=== PATIENT | female | born 1990 | race Caucasian/White ===

== ENCOUNTER 2025-01-19 18:34 | Inpatient (IN) | payer OTHER, SELFPAY ==
[2025-01-19 18:41] VITALS: BP 140/84; PULSE 90; O2SAT 99
[2025-01-19 18:48] VITALS: BP 152/76; PULSE 93; RESP 18; TEMP 37; O2SAT 98; BMI 37.8
[2025-01-19 19:29] LABS: MANUAL DIFF FLAG NO
[2025-01-19 19:34] LABS: Basophils Absolute Auto 0.1 X10*3/uL (0.0-0.2); Basophils Percent Auto 1.1 % (0-2); Eosinophils Absolute Auto 0.2 X10*3/uL (0.0-0.4); Hematocrit 36.9 % (37.0-47.0); Hemoglobin 12.4 g/dl (12.0-16.0); Imm Gran Abs Auto 0.03 X10*3/uL (0.00-0.03); Imm Gran Pct Auto 0.4 % (0.0-0.4); Lymphocytes Absolute Auto 2.3 X10*3/uL (1.2-4.9); Lymphocytes Percent Auto 30.1 % (20-40); Mean Corpuscular HGB Conc 33.6 g/dl (31.0-35.0); Mean Corpuscular Hemoglobin 29.9 pg (27.0-33.0); Mean Corpuscular Volume 88.9 fL (80.0-98.0); Monocytes Absolute Auto 0.6 X10*3/uL (0.1-1.2); Monocytes Percent Auto 7.7 % (2-11); Neutrophils Absolute Auto 4.4 x10*3/uL (2.0-8.3); Neutrophils Percent Auto 57.7 % (45-73); Platelet Count 387 X10*3/uL (160-400); Red Blood Count 4.15 X10*6/uL (4.20-5.50); Red Cell Distribution Width 13.5 % (11.0-16.0); White Blood Count 7.6 X10*3/uL (4.8-10.8)
[2025-01-19 19:42] LABS: Amphetamine Screen Urine POSITIVE (Not Detect); Barbiturates, Urine Not Detected (Not Detect); Benzodiazepines Screen Urine Not Detected (Not Detect); Buprenorphine Scr Not Detected (Not Detect); Cannabinoid Screen Urine Not Detected (Not Detect); Cocaine Screen Urine Not Detected (Not Detect); Fentanyl, urine Not Detected (Not Detect); Methadone Screen, Urine Not Detected (Not Detect); Opiate Screen Urine Not Detected (Not Detect); Oxycodone Screen Urine Not Detected (Not Detect); Phencyclidine Screen Urine Not Detected (Not Detect)
[2025-01-19 20:07] LABS: Ethanol < 10 mg/dL; HCG Quantitative < 2 mIU/mL; Influenza A PCR NEGATIVE (Negative); Influenza B PCR NEGATIVE (Negative); Resp Syncy Virus RNA Qual PCR NEGATIVE (Negative); SARS COV2 PCR INHOUSE NEGATIVE (Negative)
[2025-01-19 20:24] LABS: Alanine Aminotransferase 13 U/L (0-31); Albumin Level 4.1 g/dL (3.5-5.0); Alkaline Phosphatase 62 U/L (39-117); Aspartate Amino Transferase 16 U/L (5-31); Bilirubin Total 0.1 mg/dL (0.0-1.0); Blood Urea Nitrogen 17 mg/dL (9-16); Calcium 8.8 mg/dL (8.4-10.2); Creatinine Clr Calc Pharmacy 140.5; Estimated Glomerular Filt Rate > 60; Glucose Random 89 mg/dL (60-115); Magnesium 2.1 mg/dL (1.6-2.6); Total Protein 7.1 g/dL (6.5-8.0)
[2025-01-19 20:28] VITALS: BP 139/84; PULSE 91; RESP 18; TEMP 36.6; O2SAT 98
[2025-01-19 20:36] LABS: Anion Gap 14 (12-20); Carbon Dioxide 23 mmol/L (22-29); Chloride 108 mmol/L (96-108); Potassium 4.3 mmol/L (3.3-5.1); Sodium 141 mmol/L (135-145)
--- NOTE | 2025-01-19 21:17 | ED_ITS ---
HPI - General Adult General Chief complaint: Psychiatric Symptoms Stated complaint: ?pysch eval/med adjustment Time Seen by Provider: 01/19/25 18:45 Source: patient Limitations: no limitations History of Present Illness ED Provider: Alejandra Birch PA-C HPI narrative: 34-year-old female presents with depression. Patient states she is currently at [facility], she sees a psychiatrist. She is feeling increased depression with a progressive lack of motivation. She feels as if she is not getting the help she requires. She is requesting assessment by the care team and potential adjustment of her medications. She denies SI, or HI. She has been sober for 5 months from illicit substances and alcohol. Related Data Home Medications ?Medication ?Instructions ?Recorded ?Confirmed acetaminophen 325 mg tablet 650 mg PO Q4H PRN Fever Or Pain 01/20/25 01/20/25 albuterol sulfate 90 mcg/actuation 2 puff inhalation Q4-6H PRN SOB 01/20/25 01/20/25 aerosol inhaler (Ventolin HFA) clobetasol 0.05 % topical cream 1 appl topical BID 01/20/25 01/20/25 doxazosin 4 mg tablet 6 mg PO BEDTIME 01/20/25 01/20/25 ibuprofen 600 mg tablet 600 mg PO Q8H PRN Pain 01/20/25 01/20/25 lisdexamfetamine 60 mg capsule 60 mg PO DAILY 01/20/25 01/20/25 (Vyvanse) mirtazapine 15 mg tablet (Remeron) 7.5 mg PO BEDTIME 01/20/25 01/20/25 nicotine (polacrilex) 4 mg gum 4 mg buccal Q1H PRN Smoking 01/20/25 01/20/25 Cessation omeprazole 20 mg capsule,delayed 20 mg PO DAILY@0630 01/20/25 01/20/25 release paroxetine HCl 20 mg tablet (Paxil) 20 mg PO DAILY 01/20/25 01/20/25 quetiapine 100 mg tablet (Seroquel) 100 mg PO TID 01/20/25 01/20/25 quetiapine 300 mg tablet (Seroquel) 300 mg BEDTIME 01/20/25 01/20/25 trazodone 100 mg tablet 50 - 100 mg PO BEDTIME PRN Sleep 01/20/25 01/20/25 Allergies Allergy/AdvReac Type Severity Reaction Status Date / Time aripiprazole [From Abilify] Allergy Unknown Verified 01/19/25 18:50 lamotrigine [From Lamictal] Allergy Unknown Verified 01/19/25 18:50 Review of Systems 2 Review of Systems: Yes all other systems are reviewed and are negative Constitutional: Constitutional: Denies fatigue and Denies fever(s) Cardiovascular: Cardiovascular: Denies chest pain and Denies dyspnea Respiratory: Respiratory: Denies cough and Denies dyspnea Gastrointestinal: Gastrointestinal: Denies abdominal pain, Denies diarrhea, Denies nausea and Denies vomiting Endocrine: Endocrine: Denies fatigue [facility] Past Medical History Attestation statement: The following information was validated with the patient. Social History Social History Smoked in Last 30 Days: No Use of substances other than those prescribed or required for medical reasons: No Advance Directives: No Advance Directives Information Provided: No Patient : No Physical Exam ED Vital Signs: Vital Signs - 24 hr 01/20/25 15:53 01/20/25 20:43 01/21/25 05:33 Temperature 98.7 F 98.2 F Pulse Rate 88 89 Respiratory Rate 18 18 Blood Pressure 106/50 L 106/50 L 106/70 Pulse Oximetry 99 98 Oxygen Delivery Method Room Air Room Air BMI result Body Mass Index 37.8 Const Other: Alert Orientation/consciousness: patient oriented x3 Resp Effort & Inspection: normal respiratory effort Cardio Other: Normal peripheral perfusion Skin Other: Warm dry no rash Neuro General: patient oriented x3, gait normal, no focal motor deficits and CN's II- XI intact bilaterally Psych Other: Cooperative Course Reevaluation(s) Reevaluation #1: Time: 05:06 Date: 01/20/25 Provider: JOSE Walker Patient in physician observation for psychiatric evaluation.? No acute events reported overnight. No current complaints. VS stable.? Patient is in bed search status/pending CARE team evaluation. Will continue to monitor. Reevaluation #2: Time: 07:43 Date: 01/21/25 Provider: Gio Angeles MD Patient in physician observation for psychiatric evaluation.? No acute events reported overnight. No current complaints. VS stable.? Patient is in bed search status/pending CARE team evaluation. Will continue to monitor. Time: 07:43 Reevaluation #3: Patient will be admitted to psychiatric unit Dr. Manuela childers. This ended the observation in the emergency room Time: 11:51 Medications Administered Generic Name Dose Route Start Last Admin Trade Name Eddie PRN Reason Stop Dose Admin Amphetamine/Dextroamphetamine 25 mg 01/21/25 10:30 01/21/25 10:30 20 mg/ Amphetamine/ PO 25 mg Dextroamphetamine 5 mg DAILY ROYA Administration Betamethasone Dipropion Augmented 1 appl 01/20/25 09:00 01/21/25 09:53 Betamethasone Dip Aug 0.05% Cr 15 Gm Tube TOPICAL Not Given BID ROYA Doxazosin Mesylate 6 mg 01/20/25 21:00 01/20/25 20:43 Doxazosin Mesylate 2 Mg Tablet PO 6 mg BEDTIME ROYA Administration Protocol Famotidine 20 mg 01/20/25 09:00 01/21/25 09:50 Famotidine 20 Mg Tablet PO 20 mg DAILY ROYA Administration Lorazepam 1 mg 01/20/25 16:26 01/21/25 10:22 Lorazepam 1 Mg Tablet PO 1 mg QID PRN Administration Anxiety, agitation Mirtazapine 7.5 mg 01/20/25 21:00 01/20/25 20:44 Mirtazapine 7.5 Mg Tablet PO 7.5 mg BEDTIME ROYA Administration Paroxetine HCl 20 mg 01/20/25 09:00 01/21/25 09:50 Paroxetine Hcl 20 Mg Tablet PO 20 mg DAILY ROYA Administration Quetiapine Fumarate 100 mg 01/20/25 09:00 01/21/25 09:50 Quetiapine Fumarate 100 Mg Tablet PO 100 mg TID ROYA Administration Quetiapine Fumarate 300 mg 01/20/25 21:00 01/20/25 20:44 Quetiapine Fumarate 300 Mg Tablet PO 300 mg BEDTIME ROYA Administration Discontinued Medications Generic Name Dose Route Start Last Admin Trade Name Eddie PRN Reason Stop Dose Admin Acetaminophen 975 mg 01/20/25 02:07 01/20/25 02:10 Acetaminophen 325 Mg Tablet PO 01/20/25 02:08 975 mg ONCE ONE Administration Ibuprofen 600 mg 01/20/25 02:07 01/20/25 02:10 Ibuprofen 600 Mg Tablet PO 01/20/25 02:08 600 mg ONCE ONE Administration Lorazepam 1 mg 01/20/25 16:28 01/20/25 16:44 Lorazepam 1 Mg Tablet PO 01/20/25 16:29 1 mg ONCE ONE Administration Medical Decision Making Medical Decision Making MDM Narrative: 34-year-old female presents with depression. Patient states she is currently at [facility], she sees a psychiatrist. She is feeling increased depression with a progressive lack of motivation. She feels as if she is not getting the help she requires. She is requesting assessment by the care team and potential adjustment of her medications. She denies SI, or HI. She has been sober for 5 months from illicit substances and alcohol. Problem: Psychiatric illness , substance abuse History: Per patient I have considered the following differential diagnoses: SI, HI, decompensated psychiatric illness, drug/alcohol intoxication Plan: Screening labs including serum ethanol and U tox we will be obtained. I did speak with the care team, the patient was actively asking for help, we are going to make her inpatient, there should be a bed in the morning. I have independently reviewed the following tests: Labs: No leukocytosis, not anemic, no electrolyte abnormality, U tox negative besides amphetamine which she is prescribed, alcohol negative Lab Data 01/19/25 19:23 01/19/25 19:23 Labs: Lab Results 01/19/25 Range/Units 19:23 WBC 7.6 (4.8-10.8) X10*3/uL RBC 4.15 L (4.20-5.50) X10*6/uL Hgb 12.4 (12.0-16.0) g/dl Hct 36.9 L (37.0-47.0) % MCV 88.9 (80.0-98.0) fL MCH 29.9 (27.0-33.0) pg MCHC 33.6 (31.0-35.0) g/dl RDW 13.5 (11.0-16.0) % Plt Count 387 (160-400) X10*3/uL MPV 10.0 (9.4-12.3) fL Immature Gran % (Auto) 0.4 (0.0-0.4) % Neut % (Auto) 57.7 (45-73) % Lymph % (Auto) 30.1 (20-40) % Traverse % (Auto) 7.7 (2-11) % Eos % (Auto) 3.0 (0-4) % Baso % (Auto) 1.1 (0-2) % Lymph # (Auto) 2.3 (1.2-4.9) X10*3/uL Traverse # (Auto) 0.6 (0.1-1.2) X10*3/uL Eos # (Auto) 0.2 (0.0-0.4) X10*3/uL Baso # (Auto) 0.1 (0.0-0.2) X10*3/uL Abs Immat Gran (auto) 0.03 (0.00-0.03) X10*3/uL Absolute Neuts (auto) 4.4 (2.0-8.3) x10*3/uL Absolute Nucleated RBC 0.000 (0.0-0.012) X10*3/uL Nucleated RBC % (auto) 0.0 (0.0-0.2) /100WBC Sodium 141 (135-145) mmol/L Potassium 4.3 (3.3-5.1) mmol/L Chloride 108 (96-108) mmol/L Carbon Dioxide 23 (22-29) mmol/L Anion Gap 14 (12-20) BUN 17 H (9-16) mg/dL Creatinine 0.66 (0.5-1.4) mg/dL Estim Creat Clear Calc 140.5 Estimated GFR > 60 Random Glucose 89 (60-115) mg/dL Calcium 8.8 (8.4-10.2) mg/dL Magnesium 2.1 (1.6-2.6) mg/dL Total Bilirubin 0.1 (0.0-1.0) mg/dL AST 16 (5-31) U/L ALT 13 (0-31) U/L Alkaline Phosphatase 62 (39-117) U/L Total Protein 7.1 (6.5-8.0) g/dL Albumin 4.1 (3.5-5.0) g/dL Beta HCG, Quant < 2 mIU/mL Urine Opiates Screen Not Detected (Not Detect) Ur Buprenorphine Scrn Not Detected (Not Detect) ng/mL Ur Oxycodone Screen Not Detected (Not Detect) ng/mL Urine Methadone Screen Not Detected (Not Detect) ng/mL Urine Fentanyl Screen Not Detected (Not Detect) Ur Barbiturates Screen Not Detected (Not Detect) Ur Phencyclidine Scrn Not Detected (Not Detect) Ur Amphetamines Screen POSITIVE H (Not Detect) U Benzodiazepines Scrn Not Detected (Not Detect) Urine Cocaine Screen Not Detected (Not Detect) U Marijuana (THC) Screen Not Detected (Not Detect) Ethyl Alcohol < 10 mg/dL Influenza Type A (PCR) NEGATIVE (Negative) Influenza Type B (PCR) NEGATIVE (Negative) RSV RNA Qual (PCR) NEGATIVE (Negative) SARS-CoV-2 RNA (RT-PCR) NEGATIVE (Negative) Discharge Plan Discharge Clinical Impression: Depression Patient Disposition: Admitted As Inpatient Interventions: [place]-Suicide Risk Severity Scale Last Done: 01/21/25 05:24
[2025-01-19 22:54] VITALS: BP 129/73; PULSE 97; RESP 18; TEMP 36.6; O2SAT 97
--- NOTE | 2025-01-19 23:12 | PC.NURSE ---
CARE team at beside speaking with patient
--- NOTE | 2025-01-20 | ECG_ITS ---
Test Reason : PSYCH ADMISSION Blood Pressure : */* mmHG Vent. Rate : 82 BPM Atrial Rate : 82 BPM P-R Int : 138 ms QRS Dur : 94 ms QT Int : 386 ms P-R-T Axes : -5 60 41 degrees QTcB Int : 450 ms Normal sinus rhythm Normal ECG No previous ECGs available Referred By: Maryanne Sullivan Electronically Signed By: VILMA QUAN MD
[2025-01-20] MEDS: Acetaminophen 325 MG TABLET 975 MG PO (02:10)
[2025-01-20] MEDS: Ibuprofen 600 MG TABLET PO (02:10)
[2025-01-20 02:46] VITALS: RESP 20
[2025-01-20 06:55] VITALS: BP 112/65; PULSE 86; RESP 17; TEMP 36.7; O2SAT 97
[2025-01-20] MEDS: Betamethasone Dip Aug 0.05% Cr 15 GM TUBE 1 APPL TOPICAL (10:24)
[2025-01-20] MEDS: QUEtiapine Fumarate 100 MG TABLET PO ×3 (10:24→20:47)
[2025-01-20] MEDS: Famotidine 20 MG TABLET PO (10:24)
--- NOTE | 2025-01-20 10:29 | PC.NURSE ---
Patient topical medication placed in chart for possible BH admission
[2025-01-20] MEDS: PARoxetine HCL 20 MG TABLET PO (10:41)
--- NOTE | 2025-01-20 13:33 | PC.NURSE ---
Report received from NABIL Quintero, taken over care at this time.
--- NOTE | 2025-01-20 14:29 | PC.NURSE ---
Spoke to brand leader of [facility] and spoke to aCroline, updated her on pt's status and plan of care.
[2025-01-20 15:53] VITALS: BP 106/50; PULSE 88; RESP 18; TEMP 37.1; O2SAT 99
--- NOTE | 2025-01-20 16:38 | PHA.MEDREC ---
Addendum entered by Willem Wright 01/20/25 16:42: reviewed Original Note: Pharmacy Consult ? Medication Reconciliation Pharmacy has reviewed the medication reconciliation done by nursing. Utilized list from [facility] to confirm med list. Added Ibuprofen 600 mg, Nicotine gum , and Acetominophen 352 that was left off med list.
[2025-01-20] MEDS: LORazepam 1 MG TABLET PO (16:44)
[2025-01-20 20:43] VITALS: BP 106/50
[2025-01-20] MEDS: Doxazosin Mesylate 2 MG TABLET 6 MG PO (20:43)
[2025-01-20] MEDS: QUEtiapine Fumarate 300 MG TABLET PO (20:44)
[2025-01-20] MEDS: Mirtazapine 7.5 MG TABLET PO (20:44)
--- NOTE | 2025-01-20 23:29 | PC.NURSE ---
Took over from NABIL Rosario, pt given a snack, but in room.
--- NOTE | 2025-01-21 00:51 | PC.NURSE ---
pt given a mikayla naif
--- NOTE | 2025-01-21 05:25 | PC.NURSE ---
pt out of bed siting in chair, vitals taken. pt given MHC difficult time during bp. Pt had to be redirected.
[2025-01-21 05:33] VITALS: BP 106/70; PULSE 89; RESP 18; TEMP 36.8; O2SAT 98
--- NOTE | 2025-01-21 09:25 | PC.NURSE ---
assumed care of pt at 0645. pt resting quietly. ate breakfast. advocating for her needs. continue with plan of care for inpatient bed search.
[2025-01-21] MEDS: QUEtiapine Fumarate 100 MG TABLET PO ×3 (09:50→20:03)
[2025-01-21] MEDS: Famotidine 20 MG TABLET PO (09:50)
[2025-01-21] MEDS: PARoxetine HCL 20 MG TABLET PO ×2 (09:50→13:51)
[2025-01-21] MEDS: LORazepam 1 MG TABLET PO ×2 (10:22→19:31)
[2025-01-21] MEDS: [UNRECOGNIZED DRUG - OTHER] PO (10:30)
[2025-01-21] MEDS: DEXTROAMPHETAMINE PO (10:30)
[2025-01-21] MEDS: AMPHETAMINE PO (10:30)
--- NOTE | 2025-01-21 12:24 | HO.PSYADMNOT ---
HPI Date of Service: 01/21/25 Chief Complaint: SI Sources of Information: patient interviewed, chart reviewed and crisis/core team assessment reviewed HPI Subjective Notes: Gilbert Warning and Conditional Voluntary Narrative: Ms. Amin is a 34 year-old woman with hx of depression, methamphetamine use disorder on remission, alcohol use disorder in remission who self presented from [facility] in [place], due to increase depression, passive suicidal ideation. Her utox was positive for amphetamines, she is currently prescribed vyvanse. Other substances were negative. On the unit, pt presents as tearful and somewhat restless. She reports she has been sober for 5 months. She reports this is the longest period of sobriety she has had since she started using substances, mainly methamphetamines and alcohol at the age of 17. She reports she feels hopeless, helpless, depressed, anhedonia. She also reports feeling very anxious, which she describes as contact need to pace, during the day at times during the night. She reports she has been feeling this way for the past 3 months or so. She is tearful during interview stating she thought that by stopping illicit substances she would feel much better but it has not been the case. She reports currently at [facility] program she has not had the chance to see a psychiatric provider and she has been on same combination of medication she was started 5 months ago. She is currently on vyvvanse. She is also on seroquel 100mg po TID and additional 400mg po qhs. She reports sleep is fair. She denies hx of visual or auditory hallucinations. Past Psychiatric History: Inpt: pt reports multiple inpt admission mostly in [facility]. OP: none currently Past medication trials: paxil, seroquel, doxasozin for nightmares, trazodone, gabapentin Medical Evaluation Reviewed: Yes Diagnostics Vital Signs (24Hr): Vital Signs - 24 hr 01/20/25 15:53 01/20/25 20:43 01/21/25 05:33 Temperature 98.7 F 98.2 F Pulse Rate 88 89 Respiratory Rate 18 18 Blood Pressure 106/50 L 106/50 L 106/70 Pulse Oximetry 99 98 Oxygen Delivery Method Room Air Room Air BMI result Body Mass Index 37.8 Labs 01/19/25 19:23 01/21/25 15:17 Labs: Laboratory Results - last 48 hr 01/19/25 19:23 WBC 7.6 RBC 4.15 L Hgb 12.4 Hct 36.9 L MCV 88.9 MCH 29.9 MCHC 33.6 RDW 13.5 Plt Count 387 MPV 10.0 Immature Gran % (Auto) 0.4 Neut % (Auto) 57.7 Lymph % (Auto) 30.1 Castro % (Auto) 7.7 Eos % (Auto) 3.0 Baso % (Auto) 1.1 Lymph # (Auto) 2.3 Castro # (Auto) 0.6 Eos # (Auto) 0.2 Baso # (Auto) 0.1 Abs Immat Gran (auto) 0.03 Absolute Neuts (auto) 4.4 Absolute Nucleated RBC 0.000 Nucleated RBC % (auto) 0.0 Sodium 141 Potassium 4.3 Chloride 108 Carbon Dioxide 23 Anion Gap 14 BUN 17 H Creatinine 0.66 Estim Creat Clear Calc 140.5 Estimated GFR > 60 Random Glucose 89 Calcium 8.8 Magnesium 2.1 Total Bilirubin 0.1 AST 16 ALT 13 Alkaline Phosphatase 62 Total Protein 7.1 Albumin 4.1 Beta HCG, Quant < 2 Urine Opiates Screen Not Detected Ur Buprenorphine Scrn Not Detected Ur Oxycodone Screen Not Detected Urine Methadone Screen Not Detected Urine Fentanyl Screen Not Detected Ur Barbiturates Screen Not Detected Ur Phencyclidine Scrn Not Detected Ur Amphetamines Screen POSITIVE H U Benzodiazepines Scrn Not Detected Urine Cocaine Screen Not Detected U Marijuana (THC) Screen Not Detected Ethyl Alcohol < 10 Influenza Type A (PCR) NEGATIVE Influenza Type B (PCR) NEGATIVE RSV RNA Qual (PCR) NEGATIVE SARS-CoV-2 RNA (RT-PCR) NEGATIVE Meds/Allergies Meds Home Medications ?Medication ?Instructions ?Recorded ?Confirmed ?Type acetaminophen 325 mg tablet 650 mg PO Q4H PRN Fever Or Pain 01/20/25 01/20/25 History albuterol sulfate 90 mcg/actuation 2 puff inhalation Q4-6H PRN SOB 01/20/25 01/20/25 History aerosol inhaler (Ventolin HFA) clobetasol 0.05 % topical cream 1 appl topical BID 01/20/25 01/20/25 History doxazosin 4 mg tablet 6 mg PO BEDTIME 01/20/25 01/20/25 History ibuprofen 600 mg tablet 600 mg PO Q8H PRN Pain 01/20/25 01/20/25 History lisdexamfetamine 60 mg capsule 60 mg PO DAILY 01/20/25 01/20/25 History (Vyvanse) mirtazapine 15 mg tablet (Remeron) 7.5 mg PO BEDTIME 01/20/25 01/20/25 History nicotine (polacrilex) 4 mg gum 4 mg buccal Q1H PRN Smoking 01/20/25 01/20/25 History Cessation omeprazole 20 mg capsule,delayed 20 mg PO DAILY@0630 01/20/25 01/20/25 History release paroxetine HCl 20 mg tablet (Paxil) 20 mg PO DAILY 01/20/25 01/20/25 History quetiapine 100 mg tablet (Seroquel) 100 mg PO TID 01/20/25 01/20/25 History quetiapine 300 mg tablet (Seroquel) 300 mg BEDTIME 01/20/25 01/20/25 History trazodone 100 mg tablet 50 - 100 mg PO BEDTIME PRN Sleep 01/20/25 01/20/25 History Allergies Allergies Allergy/AdvReac Type Severity Reaction Status Date / Time aripiprazole [From Abilify] Allergy Unknown Verified 01/19/25 18:50 lamotrigine [From Lamictal] Allergy Unknown Verified 01/19/25 18:50 Mental Status Exam Mental Status Exam Narrative: Appearance: wearing hospital gown, fair hygiene, in NAD Behavior: somewhat guarded, but mostly cooperative Psychomotor: tapping feet, no tremors Speech: clear, normal rate/rhythm/volume, spontaneous TP: linear TC: wanting to feel better Mood: not well Affect: anxious and slightly irritable SI: denies HI: none VH/AH: none Delusions: none Insight/judgment: fair x 2. Memory/cog: alert, oriented x 3. grossly intact to conversational testing. Assessment & Plan Assessment & Plan (1) MDD (major depressive disorder), recurrent episode, moderate: Status: Acute Code(s): F33.1 - Major depressive disorder, recurrent, moderate (2) Methamphetamine use disorder, mild, in early remission, abuse: Status: Acute Code(s): F15.11 - Other stimulant abuse, in remission (3) Alcohol use disorder, mild, in early remission, abuse: Status: Acute Code(s): F10.11 - Alcohol abuse, in remission Plan Ms. Amin is a 34 year-old woman with hx of methamphetamine use disorder and alcohol use disorder in remission. She came from [facility] in [place]. Pt endorses symptoms of depression, including anhedonia, passive SI. She also presents with s/s suggestive of akathisia including subjective feeling of constant anxiety and constant need to move or tap feet. We discussed fact that seroquel can exacerbate akathisia, prior misuse of stimulants including methamphetamines can increase risk for akathisia. We discussed gradually lowering dose of seroquel, starting propanolol 5mg po TID and adjusting dose gradually as tolerated. She had prn dose of ativan but as akathisia is properly treated, ativan dose can be tapered off. PLAN 1. Admit to M3, CV, 15 minutes checks for safety. 2. d/c seroquel 100mg po TID, will continue night time dose of seroquel 400mg po qhs. 3. Start propanolol 5mg po TID. 4. Increase paxil from 20mg po daily to 40mg po daily 5. Aftercare planning. Patient educated on: diagnosis, medication risk/benefits and substance abuse Reason for continued inpatient stay Substantial Risk for: harm to self Statement Statement: I have reviewed the history and physical and performed a pertinent examination on my patient. No changes have occurred unless specified. If the History and Physical was not performed prior to admission, the Hospitalist's service will be consulted for completing the admission physical. Time Spent With Patient Time: Total time managing care of this patient today ____ minutes.
[2025-01-21 13:47] VITALS: BP 138/71; PULSE 88; RESP 18; TEMP 36.9; O2SAT 98
[2025-01-21 15:04] VITALS: BMI 42.9
--- NOTE | 2025-01-21 15:06 | PC.ADMIT ---
Mami is a 34-year-old female admitted from [facility] to M3 on a CV for treatment of unspecified bipolar and unspecified depressive d/o. Tox screen positive for amphetamines however pt is prescribed Adderall. Medical hx: psoriasis, pt has red scaly patches on bilateral shins. Pt reports hx of using meth and alcohol and has hx of being restrained while in withdrawal. Pt reports being sober from drugs and alcohol for 5 months. Pt has a hx of attempting suicide via fentanyl overdose when I was a lot younger. Pt has been at [facility] for 1 month. Pt presented to ED after experiencing an increase in depressive symptoms, anhedonia and loss of motivation secondary to having difficulty establishing psychiatric providers. Pt reports feeling overwhelmed due to not having providers to help her with medication changes and not having anyone to talk about how my medications have affected me. Upon admission to M3, pt was alert and oriented x4, pleasant and cooperative. Mood was depressed with congruent affect, pt was crying at times during assessment. Thought process linear and organized. Pt currently denies SI/HI/AH/VH but will reach out to staff if thoughts occur. Pt reports poor sleep due to waking up abruptly from night terrors. Pt is able to return to [facility] but she would like to go to a [facility] in [place] instead. Pt placed on 15 minute safety checks.
[2025-01-21 16:11] LABS: Alanine Aminotransferase 13 U/L (0-31); Albumin Level 3.9 g/dL (3.5-5.0); Alkaline Phosphatase 59 U/L (39-117); Anion Gap 14 (12-20); Aspartate Amino Transferase 17 U/L (5-31); Bilirubin Total 0.1 mg/dL (0.0-1.0); Blood Urea Nitrogen 15 mg/dL (9-16); Calcium 8.7 mg/dL (8.4-10.2); Carbon Dioxide 20 mmol/L (22-29); Chloride 107 mmol/L (96-108); Creatinine Clr Calc Pharmacy 148.8; Estimated Glomerular Filt Rate > 60; Glucose Random 116 mg/dL (60-115); Potassium 4.1 mmol/L (3.3-5.1); Sodium 137 mmol/L (135-145); Total Protein 6.8 g/dL (6.5-8.0)
--- NOTE | 2025-01-21 18:23 | PC.NURSE ---
Addendum entered by Carmella Alonso RN 01/21/25 18:26: Pt reported 8/10 LUQ pain Original Note: Pt reported new onset LUQ pain worsened when she inhales. BP 136/82 HR 91. Offered heating pad and Mylanta, pt refused. Provider aware.
[2025-01-21] MEDS: Nicotine Polacrilex 2 MG GUM BUCCAL (18:25)
[2025-01-21 20:00] VITALS: BP 119/78; PULSE 96; RESP 18; TEMP 36.4; O2SAT 97
[2025-01-21] MEDS: QUEtiapine Fumarate 300 MG TABLET PO (20:03)
[2025-01-21] MEDS: Mirtazapine 7.5 MG TABLET PO (20:03)
[2025-01-21 20:06] VITALS: BP 119/78
[2025-01-21] MEDS: Doxazosin Mesylate 2 MG TABLET 6 MG PO (20:06)
[2025-01-21] MEDS: Doxazosin Mesylate 1 MG TABLET PO (20:06)
[2025-01-21] MEDS: traZODone HCL 100 MG TABLET PO (22:59)
[2025-01-21] MEDS: traZODone HCL 50 MG TABLET PO (22:59)
[2025-01-21] MEDS: hydrOXYzine HCL 25 MG TABLET PO (22:59)
[2025-01-22] VITALS (7 sets, daily range): BP systolic 114–119; BP diastolic 65–70; PULSE 83–94; RESP 16–18; TEMP 36.9; O2SAT 98–99
[2025-01-22] MEDS: QUEtiapine Fumarate 100 MG TABLET PO ×2 (09:18→16:05)
[2025-01-22] MEDS: Famotidine 20 MG TABLET PO (09:18)
[2025-01-22] MEDS: PARoxetine HCL 40 MG TABLET PO (09:18)
[2025-01-22 10:14] LABS: Cholesterol 193 mg/dL (<200); HDL Cholesterol 46 mg/dL (>40); LDL Cholesterol Calculated 96 mg/dL (<100); Triglycerides 257 mg/dL (<150)
[2025-01-22 10:28] LABS: Thyroid Stimulating Hormone 2.63 uIU/mL (0.32-4.0)
[2025-01-22 10:43] LABS: Folate 12.2 ng/mL (> or = 4.0); Vitamin B12 668 pg/mL (200-900)
[2025-01-22 10:56] LABS: Estimated Average Glucose 103 mg/dL; Hemoglobin A1C 112.9694 umol/L; Hemoglobin A1c % 5.2 % (<6.0); Total Hemoglobin (HGBA1C) 3426.6241 umol/L
[2025-01-22] MEDS: LORazepam 1 MG TABLET PO ×2 (13:12→22:22)
[2025-01-22] MEDS: Propranolol HCL 10 MG TABLET 5 MG PO ×2 (16:05→20:17)
[2025-01-22] MEDS: Nicotine Polacrilex 2 MG GUM BUCCAL (16:28)
[2025-01-22] MEDS: Acetaminophen 325 MG TABLET 650 MG PO (17:50)
[2025-01-22] MEDS: hydrOXYzine HCL 25 MG TABLET PO ×2 (17:50→22:22)
[2025-01-22] MEDS: QUEtiapine Fumarate 300 MG TABLET PO (20:17)
[2025-01-22] MEDS: Doxazosin Mesylate 2 MG TABLET 6 MG PO (20:18)
[2025-01-22] MEDS: Doxazosin Mesylate 1 MG TABLET PO (20:20)
[2025-01-22] MEDS: traZODone HCL 50 MG TABLET PO ×2 (20:25→22:22)
[2025-01-22] MEDS: Mirtazapine 7.5 MG TABLET PO (20:25)
--- NOTE | 2025-01-22 22:29 | P.PNPSI_ITS ---
Subjective Subjective Date of Service: 01/22/25 Reason For Visit: SI Subjective Notes: Conditional Voluntary Interim History: Pt continues to report depressed mood but denies SI. She continues to report symptoms of restlessness, and tapping feet, which suspect are secondary to akathisia. She is tolerating propanolol. She had some difficulty sleeping last night. Discussed attempting to lower seroquel further at night, schedule trazodone. she has been visible on the unit, keeps to herself. Medication Compliance: Yes Review of Systems Review of Systems Yes all other systems are reviewed and are negative Constitutional: Denies fatigue and Denies fever(s) Cardiovascular: Denies chest pain and Denies dyspnea Respiratory: Denies cough and Denies dyspnea Gastrointestinal: Denies abdominal pain, Denies diarrhea, Denies nausea and Denies vomiting Endocrine: Denies fatigue Mental Status Exam Mental Status Exam Narrative: Appearance: wearing hospital gown, fair hygiene, in NAD Behavior: somewhat guarded, but mostly cooperative Psychomotor: tapping feet, no tremors Speech: clear, normal rate/rhythm/volume, spontaneous TP: linear TC: wanting to feel better Mood: not well Affect: anxious and slightly irritable SI: denies HI: none VH/AH: none Delusions: none Insight/judgment: fair x 2. Memory/cog: alert, oriented x 3. grossly intact to conversational testing. Diagnostics Vital Signs (24Hr): Vital Signs - 24 hr 01/22/25 07:05 01/22/25 16:01 01/22/25 16:05 Temperature 98.4 F Pulse Rate 94 86 86 Respiratory Rate 16 Blood Pressure 114/68 115/65 115/65 Pulse Oximetry 98 Oxygen Delivery Method Room Air 01/22/25 20:17 01/22/25 20:18 01/22/25 20:20 Temperature Pulse Rate 83 Respiratory Rate Blood Pressure 119/70 119/70 119/70 Pulse Oximetry Oxygen Delivery Method BMI result Body Mass Index 42.9 Labs 01/19/25 19:23 01/21/25 15:17 Labs: Laboratory Results - last 48 hr 01/21/25 01/22/25 15:17 09:33 Sodium 137 Potassium 4.1 Chloride 107 Carbon Dioxide 20 L Anion Gap 14 BUN 15 Creatinine 0.67 Estim Creat Clear Calc 148.8 Estimated GFR > 60 Random Glucose 116 H Estimat Average Glucose 103 Hemoglobin A1c % 5.2 Calcium 8.7 Total Bilirubin 0.1 AST 17 ALT 13 Alkaline Phosphatase 59 Total Protein 6.8 Albumin 3.9 Triglycerides 257 H Cholesterol 193 LDL Cholesterol, Calc 96 HDL Cholesterol 46 Vitamin B12 668 Folate 12.2 TSH 2.63 Medications Medications Current Medications Acetaminophen (Acetaminophen 325 Mg Tablet) 650 mg PO Q6H PRN PRN Reason: Headache/Pain, Scale 1-10 Last Admin: 01/22/25 17:50 Dose: 650 mg Al Hydroxide/Mg Hydroxide (Magnesium Hydrox/Alum Hydrox 30 Ml Oral.Susp) 30 ml PO Q6H PRN PRN Reason: Heartburn/Nausea Albuterol Sulfate (Albuterol Sulfate 90 Mcg 8 Gm Inhaler) 2 puff INHALE Q4H PRN PRN Reason: Shortness of Breath Betamethasone Dipropion Augmented (Betamethasone Dip Aug 0.05% Cr 15 Gm Tube) 1 appl TOPICAL BID [facility] Last Admin: 01/22/25 20:40 Dose: Not Given Doxazosin Mesylate (Doxazosin Mesylate 2 Mg Tablet) 6 mg PO BEDTIME [facility] Last Admin: 01/22/25 20:18 Dose: 6 mg Doxazosin Mesylate (Doxazosin Mesylate 1 Mg Tablet) 1 mg PO BEDTIME [facility] Last Admin: 01/22/25 20:20 Dose: 1 mg Famotidine (Famotidine 20 Mg Tablet) 20 mg PO DAILY [facility] Last Admin: 01/22/25 09:18 Dose: 20 mg Hydroxyzine HCl (Hydroxyzine Hcl 25 Mg Tablet) 25 mg PO Q6H PRN PRN Reason: mild anxiety Last Admin: 01/22/25 22:22 Dose: 25 mg Lorazepam (Lorazepam 1 Mg Tablet) 1 mg PO BID PRN PRN Reason: Anxiety, agitation Last Admin: 01/22/25 22:22 Dose: 1 mg Magnesium Hydroxide (Milk Of Magnesia 30 Ml Oral.Susp) 30 ml PO DAILY PRN PRN Reason: Constipation Mirtazapine (Mirtazapine 7.5 Mg Tablet) 7.5 mg PO BEDTIME [facility]YA Last Admin: 01/22/25 20:25 Dose: 7.5 mg Nicotine Polacrilex (Nicotine Polacrilex 2 Mg Gum) 2 mg BUCCAL Q2H PRN PRN Reason: Nicotine Cravings Last Admin: 01/22/25 16:28 Dose: 2 mg Paroxetine HCl (Paroxetine Hcl 40 Mg Tablet) 40 mg PO DAILY [facility] Last Admin: 01/22/25 09:18 Dose: 40 mg Propranolol HCl (Propranolol Hcl 10 Mg Tablet) 5 mg PO TID ROYA; Protocol Last Admin: 01/22/25 20:17 Dose: 5 mg Quetiapine Fumarate (Quetiapine Fumarate 300 Mg Tablet) 300 mg PO BEDTIME ROYA Last Admin: 01/22/25 20:17 Dose: 300 mg Quetiapine Fumarate (Quetiapine Fumarate 100 Mg Tablet) 100 mg PO TID PRN PRN Reason: anxiety Last Admin: 01/22/25 16:05 Dose: 100 mg Trazodone HCl (Trazodone Hcl 100 Mg Tablet) 100 mg PO BEDTIME PRN PRN Reason: Sleep Last Admin: 01/21/25 22:59 Dose: 100 mg Trazodone HCl (Trazodone Hcl 50 Mg Tablet) 50 mg PO BEDTIME MRX1 PRN PRN Reason: Insomnia Last Admin: 01/22/25 22:22 Dose: 50 mg Allergies Allergies Allergy/AdvReac Type Severity Reaction Status Date / Time aripiprazole [From Abilify] Allergy Unknown Verified 01/19/25 18:50 lamotrigine [From Lamictal] Allergy Unknown Verified 01/19/25 18:50 Assessment & Plan Assessment & Plan (1) MDD (major depressive disorder), recurrent episode, moderate: Status: Acute Code(s): F33.1 - Major depressive disorder, recurrent, moderate (2) Methamphetamine use disorder, mild, in early remission, abuse: Status: Acute Code(s): F15.11 - Other stimulant abuse, in remission (3) Alcohol use disorder, mild, in early remission, abuse: Status: Acute Code(s): F10.11 - Alcohol abuse, in remission Plan Ms. Amin is a 34 year-old woman with hx of methamphetamine use disorder and alcohol use disorder in remission. She came from [facility] in [place]. Pt endorses symptoms of depression, including anhedonia, passive SI. She also presents with s/s suggestive of akathisia including subjective feeling of constant anxiety and constant need to move or tap feet. We discussed fact that seroquel can exacerbate akathisia, prior misuse of stimulants including methamphetamines can increase risk for akathisia. We discussed gradually lowering dose of seroquel, starting propanolol 5mg po TID and adjusting dose gradually as tolerated. She had prn dose of ativan but as akathisia is properly treated, ativan dose can be tapered off. 01/22 continue propanolol for akathisia, titrate as tolerated, and continue taper of seroquel as even lower doses may still cause akathisia. Reason for continued inpatient stay Substantial Risk for: inability to function Time Spent With Patient Time: Total time managing care of this patient today ____ minutes.
[2025-01-23] MEDS: hydrOXYzine HCL 25 MG TABLET PO (04:18)
[2025-01-23] MEDS: QUEtiapine Fumarate 100 MG TABLET PO ×3 (07:47→20:46)
[2025-01-23 08:15] VITALS: BP 119/67; PULSE 92; RESP 14; TEMP 36.5; O2SAT 98
[2025-01-23] MEDS: Famotidine 20 MG TABLET PO (09:08)
[2025-01-23] MEDS: PARoxetine HCL 40 MG TABLET PO (09:08)
[2025-01-23] MEDS: Propranolol HCL 10 MG TABLET 5 MG PO (09:09)
[2025-01-23] MEDS: LORazepam 1 MG TABLET PO ×2 (12:01→20:47)
[2025-01-23 15:34] VITALS: BP 120/65; PULSE 86
[2025-01-23] MEDS: Propranolol HCL 10 MG TABLET PO ×2 (15:34→20:46)
--- NOTE | 2025-01-23 19:44 | HO.PSYCHPN ---
Subjective Subjective Date of Service: 01/23/25 Reason For Visit: SI Subjective Notes: Conditional Voluntary Interim History: Pt continues to report depressed mood but denies SI. She continues to report symptoms of restlessness, and tapping feet, which suspect are secondary to akathisia. She is tolerating propanolol. She had some difficulty sleeping last night. Discussed attempting to lower seroquel further at night, schedule trazodone. she has been visible on the unit, keeps to herself. Review of Systems Review of Systems Yes all other systems are reviewed and are negative Constitutional: Denies fatigue and Denies fever(s) Cardiovascular: Denies chest pain and Denies dyspnea Respiratory: Denies cough and Denies dyspnea Gastrointestinal: Denies abdominal pain, Denies diarrhea, Denies nausea and Denies vomiting Endocrine: Denies fatigue Mental Status Exam Mental Status Exam Narrative: Appearance: wearing hospital gown, fair hygiene, in NAD Behavior: somewhat guarded, but mostly cooperative Psychomotor: tapping feet, no tremors Speech: clear, normal rate/rhythm/volume, spontaneous TP: linear TC: wanting to feel better Mood: not well Affect: anxious and slightly irritable SI: denies HI: none VH/AH: none Delusions: none Insight/judgment: fair x 2. Memory/cog: alert, oriented x 3. grossly intact to conversational testing. Diagnostics Vital Signs (24Hr): Vital Signs - 24 hr 01/22/25 20:00 01/22/25 20:17 01/22/25 20:18 Temperature 98.4 F Pulse Rate 83 83 Respiratory Rate 18 Blood Pressure 119/70 119/70 119/70 Pulse Oximetry 99 Oxygen Delivery Method Room Air 01/22/25 20:20 01/23/25 08:15 01/23/25 15:34 Temperature 97.7 F Pulse Rate 92 86 Respiratory Rate 14 Blood Pressure 119/70 119/67 120/65 Pulse Oximetry 98 Oxygen Delivery Method Room Air BMI result Body Mass Index 42.9 Labs 01/19/25 19:23 01/21/25 15:17 Labs: Laboratory Results - last 48 hr 01/22/25 09:33 Estimat Average Glucose 103 Hemoglobin A1c % 5.2 Triglycerides 257 H Cholesterol 193 LDL Cholesterol, Calc 96 HDL Cholesterol 46 Vitamin B12 668 Folate 12.2 TSH 2.63 Medications Medications Current Medications Acetaminophen (Acetaminophen 325 Mg Tablet) 650 mg PO Q6H PRN PRN Reason: Headache/Pain, Scale 1-10 Last Admin: 01/22/25 17:50 Dose: 650 mg Al Hydroxide/Mg Hydroxide (Magnesium Hydrox/Alum Hydrox 30 Ml Oral.Susp) 30 ml PO Q6H PRN PRN Reason: Heartburn/Nausea Albuterol Sulfate (Albuterol Sulfate 90 Mcg 8 Gm Inhaler) 2 puff INHALE Q4H PRN PRN Reason: Shortness of Breath Betamethasone Dipropion Augmented (Betamethasone Dip Aug 0.05% Cr 15 Gm Tube) 1 appl TOPICAL BID [facility] Last Admin: 01/23/25 09:09 Dose: Not Given Doxazosin Mesylate (Doxazosin Mesylate 2 Mg Tablet) 6 mg PO BEDTIME [facility] Last Admin: 01/22/25 20:18 Dose: 6 mg Doxazosin Mesylate (Doxazosin Mesylate 1 Mg Tablet) 1 mg PO BEDTIME [facility] Last Admin: 01/22/25 20:20 Dose: 1 mg Famotidine (Famotidine 20 Mg Tablet) 20 mg PO DAILY [facility] Last Admin: 01/23/25 09:08 Dose: 20 mg Hydroxyzine HCl (Hydroxyzine Hcl 25 Mg Tablet) 25 mg PO Q6H PRN PRN Reason: mild anxiety Last Admin: 01/23/25 04:18 Dose: 25 mg Lorazepam (Lorazepam 1 Mg Tablet) 1 mg PO BID PRN PRN Reason: Anxiety, agitation Last Admin: 01/23/25 12:01 Dose: 1 mg Lorazepam (Lorazepam 1 Mg Tablet) 1 mg PO BEDTIME [facility] Magnesium Hydroxide (Milk Of Magnesia 30 Ml Oral.Susp) 30 ml PO DAILY PRN PRN Reason: Constipation Nicotine Polacrilex (Nicotine Polacrilex 2 Mg Gum) 2 mg BUCCAL Q2H PRN PRN Reason: Nicotine Cravings Last Admin: 01/22/25 16:28 Dose: 2 mg Paroxetine HCl (Paroxetine Hcl 40 Mg Tablet) 40 mg PO DAILY [facility] Last Admin: 01/23/25 09:08 Dose: 40 mg Propranolol HCl (Propranolol Hcl 10 Mg Tablet) 10 mg PO TID [facility]; Protocol Last Admin: 01/23/25 15:34 Dose: 10 mg Quetiapine Fumarate (Quetiapine Fumarate 100 Mg Tablet) 100 mg PO TID PRN PRN Reason: anxiety Last Admin: 01/23/25 12:00 Dose: 100 mg Quetiapine Fumarate (Quetiapine Fumarate 100 Mg Tablet) 100 mg PO BEDTIME [facility] Trazodone HCl (Trazodone Hcl 100 Mg Tablet) 100 mg PO BEDTIME [facility]YA Trazodone HCl (Trazodone Hcl 50 Mg Tablet) 50 mg PO BEDTIME PRN PRN Reason: sleep Allergies Allergies Allergy/AdvReac Type Severity Reaction Status Date / Time aripiprazole [From Abilify] Allergy Unknown Verified 01/19/25 18:50 lamotrigine [From Lamictal] Allergy Unknown Verified 01/19/25 18:50 Assessment & Plan Assessment & Plan (1) MDD (major depressive disorder), recurrent episode, moderate: Status: Acute Code(s): F33.1 - Major depressive disorder, recurrent, moderate (2) Methamphetamine use disorder, mild, in early remission, abuse: Status: Acute Code(s): F15.11 - Other stimulant abuse, in remission (3) Alcohol use disorder, mild, in early remission, abuse: Status: Acute Code(s): F10.11 - Alcohol abuse, in remission Plan Ms. Amin is a 34 year-old woman with hx of methamphetamine use disorder and alcohol use disorder in remission. She came from [facility] in [place]. Pt endorses symptoms of depression, including anhedonia, passive SI. She also presents with s/s suggestive of akathisia including subjective feeling of constant anxiety and constant need to move or tap feet. We discussed fact that seroquel can exacerbate akathisia, prior misuse of stimulants including methamphetamines can increase risk for akathisia. We discussed gradually lowering dose of seroquel, starting propanolol 5mg po TID and adjusting dose gradually as tolerated. She had prn dose of ativan but as akathisia is properly treated, ativan dose can be tapered off. 01/22 continue propanolol for akathisia, titrate as tolerated, and continue taper of seroquel as even lower doses may still cause akathisia. 01/23 increase propanolol to 10mg po TID, schedule trazodone 100mg po qhs, lower seroquel to 100mg po qhs. Reason for continued inpatient stay Substantial Risk for: inability to function Time Spent With Patient Time: Total time managing care of this patient today ____ minutes.
[2025-01-23 19:54] VITALS: BP 110/61; PULSE 82; RESP 18; TEMP 37.4; O2SAT 98
[2025-01-23] MEDS: traZODone HCL 100 MG TABLET PO (20:46)
[2025-01-23] MEDS: Doxazosin Mesylate 2 MG TABLET 6 MG PO (20:46)
[2025-01-23] MEDS: Doxazosin Mesylate 1 MG TABLET PO (20:46)
[2025-01-24] MEDS: LORazepam 1 MG TABLET PO ×3 (03:04→20:12)
[2025-01-24] MEDS: traZODone HCL 50 MG TABLET PO ×2 (03:04→22:06)
[2025-01-24 07:44] VITALS: BP 122/63; PULSE 94; RESP 18; TEMP 36.8; O2SAT 98
[2025-01-24] MEDS: PARoxetine HCL 40 MG TABLET PO (08:18)
[2025-01-24] MEDS: Famotidine 20 MG TABLET PO (08:18)
[2025-01-24] MEDS: Propranolol HCL 10 MG TABLET PO ×3 (08:19→20:11)
[2025-01-24] MEDS: QUEtiapine Fumarate 100 MG TABLET PO ×4 (08:25→22:06)
[2025-01-24] MEDS: Betamethasone Dip Aug 0.05% Cr 15 GM TUBE 1 APPL TOPICAL ×2 (09:01→20:15)
[2025-01-24] MEDS: Nicotine Polacrilex 2 MG GUM BUCCAL ×4 (09:01→18:54)
--- NOTE | 2025-01-24 09:43 | HO.PSYCHPN ---
Subjective Subjective Date of Service: 01/24/25 Reason For Visit: SI Subjective Notes: Conditional Voluntary Interim History: Active on unit. social with peers. Patient reports feeling anxious ; pt stated, I feel overwhelmed by everything. I feel like I'm getting no where . discussed 5 months of sobriety. she plans on returning to [facility] this week. per nursing, slept 6 hours. denies SI/HI/VH/AH. Patient reports seroquel being beneficial for her in the past. Decreased PRN Ativan to 0.5mg PO BID PRN. Medication Compliance: Yes Side effects from medications: No Mental Status Exam Mental Status Exam Narrative: Pt is alert and oriented; behavior is cooperative and calm; dressed in casual attire; mood is described as anxious ; eye contact appropriate; Speech is normal rate, volume and not pressured; thought process is organized and goal directed; Thought content is on tx; denies SI/HI/VH/AH. Diagnostics Vital Signs (24Hr): Vital Signs - 24 hr 01/23/25 15:34 01/23/25 19:54 01/24/25 07:44 Temperature 99.4 F 98.2 F Pulse Rate 86 82 94 Respiratory Rate 18 18 Blood Pressure 120/65 110/61 122/63 Pulse Oximetry 98 98 Oxygen Delivery Method Room Air Room Air BMI result Body Mass Index 42.9 Labs 01/19/25 19:23 01/21/25 15:17 Labs: Laboratory Results - last 48 hr 01/22/25 09:33 Estimat Average Glucose 103 Hemoglobin A1c % 5.2 Triglycerides 257 H Cholesterol 193 LDL Cholesterol, Calc 96 HDL Cholesterol 46 Vitamin B12 668 Folate 12.2 TSH 2.63 Medications Medications Current Medications Acetaminophen (Acetaminophen 325 Mg Tablet) 650 mg PO Q6H PRN PRN Reason: Headache/Pain, Scale 1-10 Last Admin: 01/22/25 17:50 Dose: 650 mg Al Hydroxide/Mg Hydroxide (Magnesium Hydrox/Alum Hydrox 30 Ml Oral.Susp) 30 ml PO Q6H PRN PRN Reason: Heartburn/Nausea Albuterol Sulfate (Albuterol Sulfate 90 Mcg 8 Gm Inhaler) 2 puff INHALE Q4H PRN PRN Reason: Shortness of Breath Betamethasone Dipropion Augmented (Betamethasone Dip Aug 0.05% Cr 15 Gm Tube) 1 appl TOPICAL BID [facility] Last Admin: 01/24/25 09:01 Dose: 1 appl Doxazosin Mesylate (Doxazosin Mesylate 2 Mg Tablet) 6 mg PO BEDTIME [facility] Last Admin: 01/23/25 20:46 Dose: 6 mg Doxazosin Mesylate (Doxazosin Mesylate 1 Mg Tablet) 1 mg PO BEDTIME [facility] Last Admin: 01/23/25 20:46 Dose: 1 mg Famotidine (Famotidine 20 Mg Tablet) 20 mg PO DAILY [facility] Last Admin: 01/24/25 08:18 Dose: 20 mg Hydroxyzine HCl (Hydroxyzine Hcl 25 Mg Tablet) 25 mg PO Q6H PRN PRN Reason: mild anxiety Last Admin: 01/23/25 04:18 Dose: 25 mg Lorazepam (Lorazepam 1 Mg Tablet) 1 mg PO BID PRN PRN Reason: Anxiety, agitation Last Admin: 01/24/25 03:04 Dose: 1 mg Lorazepam (Lorazepam 1 Mg Tablet) 1 mg PO BEDTIME [facility] Last Admin: 01/23/25 20:47 Dose: 1 mg Magnesium Hydroxide (Milk Of Magnesia 30 Ml Oral.Susp) 30 ml PO DAILY PRN PRN Reason: Constipation Nicotine Polacrilex (Nicotine Polacrilex 2 Mg Gum) 2 mg BUCCAL Q2H PRN PRN Reason: Nicotine Cravings Last Admin: 01/24/25 09:01 Dose: 2 mg Paroxetine HCl (Paroxetine Hcl 40 Mg Tablet) 40 mg PO DAILY [facility] Last Admin: 01/24/25 08:18 Dose: 40 mg Propranolol HCl (Propranolol Hcl 10 Mg Tablet) 10 mg PO TID [facility]; Protocol Last Admin: 01/24/25 08:19 Dose: 10 mg Quetiapine Fumarate (Quetiapine Fumarate 100 Mg Tablet) 100 mg PO TID PRN PRN Reason: anxiety Last Admin: 01/24/25 08:25 Dose: 100 mg Quetiapine Fumarate (Quetiapine Fumarate 100 Mg Tablet) 100 mg PO BEDTIME [facility] Last Admin: 01/23/25 20:46 Dose: 100 mg Trazodone HCl (Trazodone Hcl 100 Mg Tablet) 100 mg PO BEDTIME [facility] Last Admin: 01/23/25 20:46 Dose: 100 mg Trazodone HCl (Trazodone Hcl 50 Mg Tablet) 50 mg PO BEDTIME PRN PRN Reason: sleep Last Admin: 01/24/25 03:04 Dose: 50 mg Allergies Allergies Allergy/AdvReac Type Severity Reaction Status Date / Time aripiprazole [From Abilify] Allergy Unknown Verified 01/19/25 18:50 lamotrigine [From Lamictal] Allergy Unknown Verified 01/19/25 18:50 Assessment & Plan Assessment & Plan (1) MDD (major depressive disorder), recurrent episode, moderate: Status: Acute Code(s): F33.1 - Major depressive disorder, recurrent, moderate (2) Methamphetamine use disorder, mild, in early remission, abuse: Status: Acute Code(s): F15.11 - Other stimulant abuse, in remission (3) Alcohol use disorder, mild, in early remission, abuse: Status: Acute Code(s): F10.11 - Alcohol abuse, in remission Plan Ms. Amin is a 34 year-old woman with hx of methamphetamine use disorder and alcohol use disorder in remission. She came from [facility] in [place]. Pt endorses symptoms of depression, including anhedonia, passive SI. She also presents with s/s suggestive of akathisia including subjective feeling of constant anxiety and constant need to move or tap feet. We discussed fact that seroquel can exacerbate akathisia, prior misuse of stimulants including methamphetamines can increase risk for akathisia. We discussed gradually lowering dose of seroquel, starting propanolol 5mg po TID and adjusting dose gradually as tolerated. She had prn dose of ativan but as akathisia is properly treated, ativan dose can be tapered off. 01/22 continue propanolol for akathisia, titrate as tolerated, and continue taper of seroquel as even lower doses may still cause akathisia. 01/23 increase propanolol to 10mg po TID, schedule trazodone 100mg po qhs, lower seroquel to 100mg po qhs. 01/24: Active on unit. social with peers. Patient reports feeling anxious ; pt stated, I feel overwhelmed by everything. I feel like I'm getting no where . discussed 5 months of sobriety. she plans on returning to [facility] this week. per nursing, slept 6 hours. denies SI/HI/VH/AH. Patient reports seroquel being beneficial for her in the past. Decreased PRN Ativan to 0.5mg PO BID PRN. Patient educated on: diagnosis, medication risk/benefits and therapeutic strategies Reason for continued inpatient stay Substantial Risk for: med/psych decompensation Time Spent With Patient Time: Total time managing care of this patient today _20___ minutes.
[2025-01-24] MEDS: hydrOXYzine HCL 25 MG TABLET PO (10:54)
[2025-01-24 15:15] VITALS: BP 126/65; PULSE 88
[2025-01-24] MEDS: LORazepam 0.5 MG TABLET PO ×3 (17:41→23:50)
[2025-01-24 20:00] VITALS: BP 117/64; PULSE 79; RESP 16; TEMP 37.9; O2SAT 96
[2025-01-24 20:11] VITALS: BP 117/64; PULSE 79
[2025-01-24 20:12] VITALS: BP 117/64
[2025-01-24] MEDS: traZODone HCL 100 MG TABLET PO (20:12)
[2025-01-24] MEDS: Doxazosin Mesylate 2 MG TABLET 6 MG PO (20:12)
[2025-01-24] MEDS: Doxazosin Mesylate 1 MG TABLET PO (20:12)
[2025-01-24] MEDS: OLANZapine 5 MG TABLET PO (23:50)
--- NOTE | 2025-01-25 01:45 | PC.NURSE ---
At 2300 Mami was in a verbal argument with her roommate. Tensions were high and verbal threats were made by both parties. This nurse decided to move Mami to another room for safety. Mami was upset that she had to move. A different RN talked with Mami when this nurse left the room with the roommate. Patient was moved to a different room. Patient down to sit in dayroom. Nurse talked with patient and gave patient Zyprexa PO prn and Ativan PO prn.
[2025-01-25 07:47] VITALS: BP 132/81; PULSE 80; RESP 16; TEMP 36.4; O2SAT 96
[2025-01-25 09:21] VITALS: BP 129/71; PULSE 97
[2025-01-25] MEDS: PARoxetine HCL 40 MG TABLET PO (09:21)
[2025-01-25] MEDS: Propranolol HCL 10 MG TABLET PO ×3 (09:21→20:57)
[2025-01-25] MEDS: Famotidine 20 MG TABLET PO (09:21)
[2025-01-25] MEDS: Betamethasone Dip Aug 0.05% Cr 15 GM TUBE 1 APPL TOPICAL ×2 (09:23→20:59)
[2025-01-25] MEDS: QUEtiapine Fumarate 100 MG TABLET PO ×3 (09:29→20:56)
[2025-01-25] MEDS: LORazepam 0.5 MG TABLET PO ×2 (09:30→20:57)
[2025-01-25] MEDS: Acetaminophen 325 MG TABLET 650 MG PO ×2 (11:29→20:57)
[2025-01-25] MEDS: Nicotine Polacrilex 2 MG GUM BUCCAL ×2 (11:29→15:57)
--- NOTE | 2025-01-25 13:51 | P.PNPSI_ITS ---
Subjective Subjective Date of Service: 01/25/25 Reason For Visit: SI Subjective Notes: Conditional Voluntary Interim History: Patient continues to report feeling anxious ; denies SI/HI/VH/AH. pt requesting increase in Ativan; T/W explained reasoning for not increasing and plan for taper off. Patient became upset and left unit office abruptly. Patient requested to have Seroquel 100mg PO TID scheduled. Plan for patient to return to program tomorrow. Change Seoquel to 100mg PO TID Increase trazodone to 150mg PO bedtime. DC Ativan 1mg PO bedtime. Medication Compliance: Yes Side effects from medications: No Attending Groups: Yes Mental Status Exam Mental Status Exam Narrative: Pt is alert and oriented; behavior is cooperative and calm; dressed in casual attire; mood is described as anxious ; eye contact appropriate; Speech is normal rate, volume and not pressured; thought process is organized; Thought content is on discharge; denies SI/HI/VH/AH. Diagnostics Vital Signs (24Hr): Vital Signs - 24 hr 01/24/25 15:15 01/24/25 20:00 01/24/25 20:11 Temperature 100.2 F Pulse Rate 88 79 79 Respiratory Rate 16 Blood Pressure 126/65 117/64 117/64 Pulse Oximetry 96 Oxygen Delivery Method Room Air 01/24/25 20:12 01/24/25 20:12 01/25/25 07:47 Temperature 97.6 F Pulse Rate 80 Respiratory Rate 16 Blood Pressure 117/64 117/64 132/81 Pulse Oximetry 96 Oxygen Delivery Method Room Air 01/25/25 09:21 Temperature Pulse Rate 97 Respiratory Rate Blood Pressure 129/71 Pulse Oximetry Oxygen Delivery Method BMI result Body Mass Index 42.9 Labs 01/19/25 19:23 01/21/25 15:17 Medications Medications Current Medications Acetaminophen (Acetaminophen 325 Mg Tablet) 650 mg PO Q6H PRN PRN Reason: Headache/Pain, Scale 1-10 Last Admin: 01/25/25 11:29 Dose: 650 mg Al Hydroxide/Mg Hydroxide (Magnesium Hydrox/Alum Hydrox 30 Ml Oral.Susp) 30 ml PO Q6H PRN PRN Reason: Heartburn/Nausea Albuterol Sulfate (Albuterol Sulfate 90 Mcg 8 Gm Inhaler) 2 puff INHALE Q4H PRN PRN Reason: Shortness of Breath Betamethasone Dipropion Augmented (Betamethasone Dip Aug 0.05% Cr 15 Gm Tube) 1 appl TOPICAL BID ROYA Last Admin: 01/25/25 09:23 Dose: 1 appl Doxazosin Mesylate (Doxazosin Mesylate 2 Mg Tablet) 6 mg PO BEDTIME ROYA Last Admin: 01/24/25 20:12 Dose: 6 mg Doxazosin Mesylate (Doxazosin Mesylate 1 Mg Tablet) 1 mg PO BEDTIME ROYA Last Admin: 01/24/25 20:12 Dose: 1 mg Famotidine (Famotidine 20 Mg Tablet) 20 mg PO DAILY ROYA Last Admin: 01/25/25 09:21 Dose: 20 mg Hydroxyzine HCl (Hydroxyzine Hcl 25 Mg Tablet) 25 mg PO Q6H PRN PRN Reason: mild anxiety Last Admin: 01/24/25 10:54 Dose: 25 mg Lorazepam (Lorazepam 0.5 Mg Tablet) 0.5 mg PO BID PRN PRN Reason: Anxiety, agitation Last Admin: 01/25/25 09:30 Dose: 0.5 mg Magnesium Hydroxide (Milk Of Magnesia 30 Ml Oral.Susp) 30 ml PO DAILY PRN PRN Reason: Constipation Nicotine Polacrilex (Nicotine Polacrilex 2 Mg Gum) 2 mg BUCCAL Q2H PRN PRN Reason: Nicotine Cravings Last Admin: 01/25/25 11:29 Dose: 2 mg Olanzapine (Olanzapine 5 Mg Tablet) 5 mg PO Q4H PRN PRN Reason: agitation Paroxetine HCl (Paroxetine Hcl 40 Mg Tablet) 40 mg PO DAILY [facility] Last Admin: 01/25/25 09:21 Dose: 40 mg Propranolol HCl (Propranolol Hcl 10 Mg Tablet) 10 mg PO TID ROYA; Protocol Last Admin: 01/25/25 09:21 Dose: 10 mg Quetiapine Fumarate (Quetiapine Fumarate 100 Mg Tablet) 100 mg PO TID [facility] Trazodone HCl (Trazodone Hcl 50 Mg Tablet) 150 mg PO BEDTIME ROYA Allergies Allergies Allergy/AdvReac Type Severity Reaction Status Date / Time chlorpromazine Allergy Severe Swelling Verified 01/25/25 12:11 [From Thorazine] aripiprazole [From Abilify] Allergy Unknown Verified 01/19/25 18:50 lamotrigine [From Lamictal] Allergy Unknown Verified 01/19/25 18:50 Assessment & Plan Assessment & Plan (1) MDD (major depressive disorder), recurrent episode, moderate: Status: Acute Code(s): F33.1 - Major depressive disorder, recurrent, moderate (2) Methamphetamine use disorder, mild, in early remission, abuse: Status: Acute Code(s): F15.11 - Other stimulant abuse, in remission (3) Alcohol use disorder, mild, in early remission, abuse: Status: Acute Code(s): F10.11 - Alcohol abuse, in remission Plan Ms. Amin is a 34 year-old woman with hx of methamphetamine use disorder and alcohol use disorder in remission. She came from [facility] in [place]. Pt endorses symptoms of depression, including anhedonia, passive SI. She also presents with s/s suggestive of akathisia including subjective feeling of constant anxiety and constant need to move or tap feet. We discussed fact that seroquel can exacerbate akathisia, prior misuse of stimulants including methamphetamines can increase risk for akathisia. We discussed gradually lowering dose of seroquel, starting propanolol 5mg po TID and adjusting dose gradually as tolerated. She had prn dose of ativan but as akathisia is properly treated, ativan dose can be tapered off. 01/22 continue propanolol for akathisia, titrate as tolerated, and continue taper of seroquel as even lower doses may still cause akathisia. 01/23 increase propanolol to 10mg po TID, schedule trazodone 100mg po qhs, lower seroquel to 100mg po qhs. 01/24: Active on unit. social with peers. Patient reports feeling anxious ; pt stated, I feel overwhelmed by everything. I feel like I'm getting no where . discussed 5 months of sobriety. she plans on returning to [facility] this week. per nursing, slept 6 hours. denies SI/HI/VH/AH. Patient reports seroquel being beneficial for her in the past. Decreased PRN Ativan to 0.5mg PO BID PRN. 01/25: Patient continues to report feeling anxious ; denies SI/HI/VH/AH. pt requesting increase in Ativan; T/W explained reasoning for not increasing and plan for taper off. Patient became upset and left unit office abruptly. Patient requested to have Seroquel 100mg PO TID scheduled. Plan for patient to return to program tomorrow. Change Seoquel to 100mg PO TID Increase trazodone to 150mg PO bedtime. DC Ativan 1mg PO bedtime. Patient educated on: diagnosis, medication risk/benefits and therapeutic strategies Reason for continued inpatient stay Substantial Risk for: stable for discharge Time Spent With Patient Time: Total time managing care of this patient today _20___ minutes.
[2025-01-25 16:00] VITALS: BP 98/55; PULSE 69
[2025-01-25 17:05] VITALS: BP 118/66; PULSE 95
[2025-01-25 20:15] VITALS: BP 120/61; PULSE 80; RESP 16; TEMP 36.9; O2SAT 96
[2025-01-25] MEDS: Doxazosin Mesylate 2 MG TABLET 6 MG PO (20:54)
[2025-01-25] MEDS: traZODone HCL 50 MG TABLET 150 MG PO (20:55)
[2025-01-25] MEDS: hydrOXYzine HCL 25 MG TABLET PO (20:56)
[2025-01-25] MEDS: Doxazosin Mesylate 1 MG TABLET PO (20:56)
[2025-01-25] MEDS: OLANZapine 5 MG TABLET PO (20:56)
[2025-01-26] MEDS: OLANZapine 5 MG TABLET PO (01:41)
[2025-01-26 07:28] VITALS: BP 132/70; PULSE 86; RESP 16; TEMP 36.9; O2SAT 97
[2025-01-26] MEDS: QUEtiapine Fumarate 100 MG TABLET PO (08:09)
[2025-01-26] MEDS: Famotidine 20 MG TABLET PO (08:09)
[2025-01-26] MEDS: PARoxetine HCL 40 MG TABLET PO (08:09)
[2025-01-26] MEDS: Propranolol HCL 10 MG TABLET PO (08:10)
[2025-01-26] MEDS: LORazepam 0.5 MG TABLET PO (08:10)
[2025-01-26] MEDS: hydrOXYzine HCL 25 MG TABLET PO (08:10)
[2025-01-26] MEDS: Nicotine Polacrilex 2 MG GUM BUCCAL ×2 (08:11→10:55)
[2025-01-26] MEDS: Betamethasone Dip Aug 0.05% Cr 15 GM TUBE 1 APPL TOPICAL (08:51)
--- NOTE | 2025-01-26 09:05 | PM.PSYDC ---
DS: Providers Provider Date of Service: 01/26/25 Date of admission: 01/21/25 11:03 Date of discharge: 01/26/25 Primary care physician: Lamar Physician Admitting clinician: Mary Montelongo Attending physician on admission: Mazin Roy Attending physician on discharge: Mazin Roy Discharging clinician: Josephine Watkins DS: Diagnosis Discharge Diagnosis (1) MDD (major depressive disorder), recurrent episode, moderate: Status: Acute (2) Methamphetamine use disorder, mild, in early remission, abuse: Status: Acute (3) Alcohol use disorder, mild, in early remission, abuse: Status: Acute DS: Medications Discharge Medications Home Medications: Home Medications ?Medication ?Instructions ?Recorded ?Confirmed acetaminophen 325 mg tablet 650 mg PO Q4H PRN Fever Or Pain 01/20/25 01/20/25 clobetasol 0.05 % topical cream 1 appl topical BID 01/20/25 01/20/25 doxazosin 4 mg tablet 6 mg PO BEDTIME 01/20/25 01/20/25 ibuprofen 600 mg tablet 600 mg PO Q8H PRN Pain 01/20/25 01/20/25 lisdexamfetamine 60 mg capsule 60 mg PO DAILY 01/20/25 01/20/25 (Vyvanse) nicotine (polacrilex) 4 mg gum 4 mg buccal Q1H PRN Smoking 01/20/25 01/20/25 Cessation Previous Rx's ?Medication ?Instructions ?Recorded albuterol sulfate 90 mcg/actuation 2 puff inhalation Q4-6H PRN SOB 30 01/25/25 aerosol inhaler (Ventolin HFA) days #8.5 grams hydroxyzine HCl 25 mg tablet 25 mg PO BID PRN mild anxiety 30 01/25/25 days #60 tabs omeprazole 20 mg capsule,delayed 20 mg PO DAILY@0630 30 days #30 01/25/25 release caps paroxetine HCl 40 mg tablet 40 mg PO DAILY 30 days #30 tabs 01/25/25 propranolol 10 mg tablet 10 mg PO TID 30 days #90 tabs 01/25/25 quetiapine 100 mg tablet (Seroquel) 100 mg PO TID 30 days #90 tabs 01/25/25 trazodone 150 mg tablet 150 mg PO BEDTIME 30 days #30 tabs 01/25/25 Mental Status Exam Mental Status Exam Narrative: Pt is alert and oriented; behavior is cooperative and calm; dressed in casual attire; mood is described as anxious ; eye contact appropriate; Speech is normal rate, volume and not pressured; thought process is organized; Thought content is on discharge; denies SI/HI/VH/AH. Data Data Completed and Pending Completed studies during hospitalization [Text1]: 01/19/25 01/21/25 01/22/25 19:23 15:17 09:33 WBC 7.6 RBC 4.15 L Hgb 12.4 Hct 36.9 L MCV 88.9 MCH 29.9 MCHC 33.6 RDW 13.5 Plt Count 387 MPV 10.0 Immature Gran % (Auto) 0.4 Neut % (Auto) 57.7 Lymph % (Auto) 30.1 [place] % (Auto) 7.7 Eos % (Auto) 3.0 Baso % (Auto) 1.1 Lymph # (Auto) 2.3 [place] # (Auto) 0.6 Eos # (Auto) 0.2 Baso # (Auto) 0.1 Abs Immat Gran (auto) 0.03 Absolute Neuts (auto) 4.4 Absolute Nucleated RBC 0.000 Nucleated RBC % (auto) 0.0 Sodium 141 137 Potassium 4.3 4.1 Chloride 108 107 Carbon Dioxide 23 20 L Anion Gap 14 14 BUN 17 H 15 Creatinine 0.66 0.67 Estim Creat Clear Calc 140.5 148.8 Estimated GFR > 60 > 60 Random Glucose 89 116 H Estimat Average Glucose 103 Hemoglobin A1c % 5.2 Calcium 8.8 8.7 Magnesium 2.1 Total Bilirubin 0.1 0.1 AST 16 17 ALT 13 13 Alkaline Phosphatase 62 59 Total Protein 7.1 6.8 Albumin 4.1 3.9 Triglycerides 257 H Cholesterol 193 LDL Cholesterol, Calc 96 HDL Cholesterol 46 Vitamin B12 668 Folate 12.2 TSH 2.63 Beta HCG, Quant < 2 Urine Opiates Screen Not Detected Ur Buprenorphine Scrn Not Detected Ur Oxycodone Screen Not Detected Urine Methadone Screen Not Detected Urine Fentanyl Screen Not Detected Ur Barbiturates Screen Not Detected Ur Phencyclidine Scrn Not Detected Ur Amphetamines Screen POSITIVE H U Benzodiazepines Scrn Not Detected Urine Cocaine Screen Not Detected U Marijuana (THC) Screen Not Detected Ethyl Alcohol < 10 Influenza Type A (PCR) NEGATIVE Influenza Type B (PCR) NEGATIVE RSV RNA Qual (PCR) NEGATIVE SARS-CoV-2 RNA (RT-PCR) NEGATIVE DS: Summary Hospital Course Hospital Course: Ms. Amin is a 34 year-old woman with hx of depression, methamphetamine use disorder on remission, alcohol use disorder in remission who self presented from [facility] in [place], due to increase depression, passive suicidal ideation. Her utox was positive for amphetamines, she is currently prescribed vyvanse. Other substances were negative. On the unit, pt presents as tearful and somewhat restless. She reports she has been sober for 5 months. She reports this is the longest period of sobriety she has had since she started using substances, mainly methamphetamines and alcohol at the age of 17. She reports she feels hopeless, helpless, depressed, anhedonia. She also reports feeling very anxious, which she describes as contact need to pace, during the day at times during the night. She reports she has been feeling this way for the past 3 months or so. She is tearful during interview stating she thought that by stopping illicit substances she would feel much better but it has not been the case. She reports currently at [facility] program she has not had the chance to see a psychiatric provider and she has been on same combination of medication she was started 5 months ago. She is currently on vyvvanse. She is also on seroquel 100mg po TID and additional 400mg po qhs. She reports sleep is fair. She denies hx of visual or auditory hallucinations. Ms. Amin is a 34 year-old woman with hx of methamphetamine use disorder and alcohol use disorder in remission. She came from [facility] in [place]. Pt endorses symptoms of depression, including anhedonia, passive SI. She also presents with s/s suggestive of akathisia including subjective feeling of constant anxiety and constant need to move or tap feet. We discussed fact that seroquel can exacerbate akathisia, prior misuse of stimulants including methamphetamines can increase risk for akathisia. We discussed gradually lowering dose of seroquel, starting propanolol 5mg po TID and adjusting dose gradually as tolerated. She had prn dose of ativan but as akathisia is properly treated, ativan dose can be tapered off. continue propanolol for akathisia, titrate as tolerated, and continue taper of seroquel as even lower doses may still cause akathisia. increase propanolol to 10mg po TID, schedule trazodone 100mg po qhs, lower seroquel to 100mg po qhs. Active on unit. social with peers. Patient reports feeling anxious ; pt stated, I feel overwhelmed by everything. I feel like I'm getting no where . discussed 5 months of sobriety. she plans on returning to [facility] this week. per nursing, slept 6 hours. denies SI/HI/VH/AH. Patient reports seroquel being beneficial for her in the past. Decreased PRN Ativan to 0.5mg PO BID PRN. Patient continues to report feeling anxious ; denies SI/HI/VH/AH. pt requesting increase in Ativan; T/W explained reasoning for not increasing and plan for taper off. Patient became upset and left unit office abruptly. Patient requested to have Seroquel 100mg PO TID scheduled. Plan for patient to return to [facility] tomorrow. Change Seoquel to 100mg PO TID Increase trazodone to 150mg PO bedtime. DC Ativan 1mg PO bedtime. Patient continues to report feeling anxious today about returning to [facility]. denies SI/HI/VH/AH. She plans on following up with her outpatient providers. Status at Discharge Cognitive/behavioral status at discharge: Patient has insight and demonstrates good judgment in terms of wanting to pursue treatment. Patient has a safety plan that includes presenting to the closest ER or calling 911 if feeling unsafe. Functional status at discharge: independent ambulation Overall status at discharge: patient is back to baseline Time Spent with Patient Time attestation: Total time managing care of this patient today _20___ minutes. Time spent: Less than 30 minutes Discharge Plan Discharge Anticipated Discharge Date/Time: 01/26/25 11:00 Patient Disposition: Home, Self-Care Discharge Diagnosis: MDD, alcohol use d/o, methamphetamine use d/o Referrals: [facility] [Provider Group] - 1 Week (01-26-25 [facility] was added to patients chart. Please call [phone] to schedule a follow up appt within 7-10 days of your discharge. No release or PCP on file.) Discharge Medications: New trazodone 150 mg tablet 150 mg PO BEDTIME 30 Days Qty: 30 0RF paroxetine HCl 40 mg Tablet 40 mg PO DAILY 30 Days Qty: 30 0RF hydroxyzine HCl 25 mg Tablet 25 mg PO BID PRN (Reason: mild anxiety) 30 Days Qty: 60 0RF propranolol 10 mg Tablet 10 mg PO TID 30 Days Qty: 90 0RF Protocol: Hold for SBP/HR < HOLD for SBP < : 90 HOLD for HR < : 60 Continued doxazosin 4 mg Tablet 6 mg PO BEDTIME lisdexamfetamine [Vyvanse] 60 mg Capsule 60 mg PO DAILY clobetasol 0.05 % Cream 1 appl TOPICAL BID acetaminophen 325 mg Tablet 650 mg PO Q4H PRN (Reason: Fever Or Pain) nicotine (polacrilex) 4 mg Gum 4 mg BUCCAL Q1H PRN (Reason: Smoking Cessation) ibuprofen 600 mg Tablet 600 mg PO Q8H PRN (Reason: Pain) quetiapine [Seroquel] 100 mg Tablet 100 mg PO TID 30 Days Qty: 90 0RF omeprazole 20 mg Capsule,Delayed Release(Dr/Ec) 20 mg PO DAILY@0630 30 Days Qty: 30 0RF albuterol sulfate [Ventolin HFA] 90 mcg/actuation Hfa Aerosol Inhaler 2 puff INHALATION Q4-6H PRN (Reason: SOB) 30 Days Qty: 8.5 0RF Discontinued quetiapine [Seroquel] 300 mg Tablet 300 mg BEDTIME trazodone 100 mg Tablet 50 - 100 mg PO BEDTIME PRN (Reason: Sleep) paroxetine HCl [Paxil] 20 mg Tablet 20 mg PO DAILY mirtazapine [Remeron] 15 mg Tablet 7.5 mg PO BEDTIME Discharge Orders: Discharge Order (Routine); Ordered 01/26/25 Ordered By: Josephine Watkins Diet: Regular diet Activity on Discharge: As tolerated Stand Alone Forms: Patient Portal Discharge page, Community Support Print Language: Kittitian Care Plan Goals: Maintain mood and safe behaviors Take medications as prescribed Continue to pursue sobriety Practice coping skills Continue with outpatient providers and reach out to them as needed Health Concerns: Mood stability and behaviors Sobriety Plan of Treatment: Follow up with your PCP, psychiatric provider and other outpatient providers regarding above concerns Take medications as prescribed Assessment: Patient has insight and demonstrates good judgment in terms of wanting to pursue treatment. Patient has a safety plan that includes presenting to the closest ER or calling 911 if feeling unsafe. Discharge Date/Time: 01/26/25 11:37
== END 2025-01-26 11:37 | disposition home or self-care (01) | DRG 751 ==
LOC: HO.ED 01-20 20:25 → HO.PADLT16 01-21 11:17
PROVIDERS: Physician Assistant Medical; Admitting Provider Social Worker; Emergency Provider Emergency Medicine; Responsible Provider Registered Nurse; Visit Provider Psychiatry & Neurology Psychiatry
DX: F33.1 Major depressive disorder, recurrent, moderate (principal); R45.851 Suicidal ideations; F17.210 Nicotine dependence, cigarettes, uncomplicated; F15.11 Other stimulant abuse, in remission; F10.11 Alcohol abuse, in remission; Z71.6 Tobacco abuse counseling; Z20.822 Contact with and (suspected) exposure to COVID-19; Z79.899 Other long term (current) drug therapy
CPT/HCPCS: 0241U; 36415; 80053; 80061; 80307; 82607; 82746; 83036; 83735; 84443; 84702; 85025; 93005; 99285; S9485

== ENCOUNTER → 2025-01-20 07:46 | Outpatient (BNV) | payer OTHER, SELFPAY | PROVIDERS: Emergency Provider Emergency Medicine; Visit Provider Internal Medicine Cardiovascular Disease | DX: Z04.6 Encounter for general psychiatric examination, requested by authority (principal) | CPT/HCPCS: 93010 ==

== ENCOUNTER → 2025-01-21 11:03 | Outpatient (BNV) | payer OTHER, SELFPAY | PROVIDERS: Admitting Provider Social Worker; Emergency Provider Emergency Medicine; Visit Provider Social Worker | DX: F33.1 Major depressive disorder, recurrent, moderate (principal); F15.11 Other stimulant abuse, in remission; F10.11 Alcohol abuse, in remission | CPT/HCPCS: 90792; 99232; 99238 ==